=== PATIENT | female | born 1990 | race Caucasian/White ===

== ENCOUNTER 2017-03-01 18:59 | Emergency (ER) | payer SELFPAY ==
[~2017-03-01] VITALS: Ht 157.5 cm; Wt 62.2 kg
[2017-03-01 19:05] VITALS: BP 121/80
== END 2017-03-01 20:41 | disposition home or self-care (01) ==
LOC: ED 20:25
DX: K04.7 Periapical abscess without sinus (principal); F41.1 Generalized anxiety disorder; F17.200 Nicotine dependence, unspecified, uncomplicated
CPT/HCPCS: 99283